=== PATIENT | female | born 1970 | race Hispanic/Latino ===

== ENCOUNTER 2018-08-26 21:17 | Emergency (ER) | payer BC ==
[2018-08-26] MEDS ORDERED: ACETAMINOPHEN 500 MG TAB ONE (22:28)
[2018-08-26 22:55] LABS: Urine Blood 1+ (NEG); Urine Glucose NEGATIVE (NEG); Urine Protein 1+ (NEG)
[2018-08-26] MEDS ORDERED: NA CHLORIDE 0.9% 1,000 ML ONE (23:10)
[2018-08-26 23:17] LABS: Urine Bacteria LOADED /HPF (<20); Urine Culture Reflex Order REFLEXED
[2018-08-26 23:20] LABS: Absolute Lymphocytes (CBC) 1.4 K/uL (0.7-4.9); Absolute Monocytes 0.9 K/uL (0.1-1.3); Absolute Neutrophil 8.4 K/uL (1.8-8.0); Basophils % 0.3 % (0-1.3); Eosinophils % 0.6 % (0-4.4); Hematocrit 39.8 % (36.0-45.0); Lymphocytes % 13.3 % (15.3-44.8); MPV 7.8 fL (7.6-11.3); Monocytes % 8.6 % (3.3-12.3); RBC Red Blood Cell Count 4.67 M/uL (3.86-4.86)
[2018-08-26] MEDS ORDERED: CEFTRIAXONE/SWI 1gm 1 GM/10 ML SYR ONE (23:24)
[2018-08-26 23:36] LABS: Albumin 3.2 g/dL (3.4-5.0); Bilirubin Direct 0.2 mg/dL (0-0.2); Bilirubin Total 0.6 mg/dL (0.2-1.0); Potassium 3.6 mmol/L (3.5-5.1); Protein, Total 7.3 g/dL (6.4-8.2)
--- NOTE | 2018-08-26 23:50 | EDPHYS ---
Physician Documentation [facility] Name: Becky Johnson Age: 48 yrs Sex: Female : 1970 Arrival Date: 08/26/2018 Time: 21:23 Bed 25 Private MD: Juan Chowdary S ED Physician Sterling Quinones HPI: 08/26 23:00 This 48 yrs old Female presents to ER via Ambulatory with complaints of Low pm1 Back Pain, Fever. 23:00 The patient presents with pain that is acute. The symptoms are located in the right low pm1 back. The pain does not radiate. The problem was sustained from unknown cause. Onset: The symptoms/episode began/occurred 3 day(s) ago. Modifying factors: The patient symptoms are alleviated by nothing, the patient symptoms are aggravated by nothing. Associated signs and symptoms: Pertinent positives: fever, cough, Pertinent negatives: abdominal pain, dysuria, headache, nausea, numbness, tingling, vomiting, shortness of breath. Severity of symptoms: in the emergency department the symptoms are unchanged. The patient has not experienced similar symptoms in the past. The patient has not recently seen a physician. 23:00 Associated signs and symptoms: Pertinent positives: Urinary frequency with right flank pm1 pain. 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 - Social history:: Smoking status: Patient/guardian denies using tobacco. - Ebola Screening: : Patient negative for fever greater than or equal to 101.5 degrees Fahrenheit, and additional compatible Ebola Virus Disease symptoms Patient denies exposure to infectious person Patient denies travel to an Ebola-affected area in the 21 days before illness onset No symptoms or risks identified at this time. ROS: 23:00 Eyes: Negative for injury, pain, redness, and discharge, ENT: Negative for injury, pm1 pain, and discharge, Neck: Negative for injury, pain, and swelling, Cardiovascular: Negative for chest pain, palpitations, and edema. 23:00 Abdomen/GI: Negative for abdominal pain, nausea, vomiting, diarrhea, and constipation. 23:00 : Negative for injury, bleeding, discharge, and swelling, MS/Extremity: Negative for injury and deformity, Skin: Negative for injury, rash, and discoloration, Neuro: Negative for headache, weakness, numbness, tingling, and seizure. 23:00 Constitutional: Positive for body aches, fever, Negative for poor PO intake. 23:00 Respiratory: Positive for cough, Negative for shortness of breath, sputum production, wheezing. 23:00 Back: Positive for flank pain, on the right. 23:00 : Positive for urinary frequency. pm1 Exam: 23:00 Constitutional: This is a well developed, well nourished patient who is awake, alert, pm1 and in no acute distress. Head/Face: Normocephalic, atraumatic. Eyes: Pupils equal round and reactive to light, extra-ocular motions intact. Lids and lashes normal. Conjunctiva and sclera are non-icteric and not injected. Cornea within normal limits. Periorbital areas with no swelling, redness, or edema. ENT: Nares patent. No nasal discharge, no septal abnormalities noted. Tympanic membranes are normal and external auditory canals are clear. Oropharynx with no redness, swelling, or masses, exudates, or evidence of obstruction, uvula midline. Mucous membranes moist. Neck: Trachea midline, no thyromegaly or masses palpated, and no cervical lymphadenopathy. Supple, full range of motion without nuchal rigidity, or vertebral point tenderness. No Meningismus. Chest/axilla: Normal chest wall appearance and motion. Nontender with no deformity. No lesions are appreciated. Cardiovascular: Regular rate and rhythm with a normal S1 and S2. No gallops, murmurs, or rubs. Normal PMI, no JVD. No pulse deficits. Respiratory: Lungs have equal breath sounds bilaterally, clear to auscultation and percussion. No rales, rhonchi or wheezes noted. No increased work of breathing, no retractions or nasal flaring. Abdomen/GI: Soft, non-tender, with normal bowel sounds. No distension or tympany. No guarding or rebound. No evidence of tenderness throughout. 23:00 Skin: Warm, dry with normal turgor. Normal color with no rashes, no lesions, and no evidence of cellulitis. MS/ Extremity: Pulses equal, no cyanosis. Neurovascular intact. Full, normal range of motion. 23:00 Back: CVA tenderness, that is mild, is noted on the right. 23:00 Neuro: Orientation: is normal, Motor: is normal, moves all fours. Vital Signs: 21:28 BP 137 / 85; Pulse 122; Resp 20; Temp 100.2(TE); Pulse Ox 98% on R/A; Weight 81.65 kg; aj Height 5 ft. 1 in. (154.94 cm); 23:26 BP 114 / 74; Pulse 112; Resp 18; Pulse Ox 97% ; tl3 08/27 00:17 BP 110 / 69; Pulse 103; Resp 18; Pulse Ox 97% on R/A; tl3 08/26 21:28 Body Mass Index 34.01 (81.65 kg, 154.94 cm) aj MDM: 08/26 21:33 Patient medically screened. pm1 23:48 Data reviewed: vital signs. Data interpreted: Pulse oximetry: on room air is 97 %. pm1 Interpretation: normal. Counseling: I had a detailed discussion with the patient and/or guardian regarding: the historical points, exam findings, and any diagnostic results supporting the discharge/admit diagnosis, lab results, the need for outpatient follow up, to return to the emergency department if symptoms worsen or persist or if there are any questions or concerns that arise at home. 08/26 22:03 Order name: Flu; Complete Time: 22:38 pm1 08/26 22:46 Order name: Urine Dipstick--Ancillary (enter results); Complete Time: 23:07 ms 08/26 22:49 Order name: Test, Urine; Complete Time: 23:07 EDVA 08/26 22:54 Order name: Urine Microscopic Only; Complete Time: 23:19 pm1 08/26 22:54 Order name: Basic Metabolic Panel; Complete Time: 23:47 pm1 08/26 22:54 Order name: CBC with Diff; Complete Time: 23:31 pm1 08/26 22:54 Order name: Hepatic Function; Complete Time: 23:47 pm1 08/26 22:54 Order name: Lipase; Complete Time: 23:47 pm1 08/26 23:17 Order name: Urine Culture EDVA 08/26 22:03 Order name: Urine Dipstick-Ancillary (obtain specimen); Complete Time: 22:19 pm1 08/26 22:03 Order name: Urine Test (obtain specimen); Complete Time: 22:44 pm1 08/26 22:54 Order name: IV Saline Lock; Complete Time: 23:25 pm1 08/26 22:54 Order name: Labs collected and sent; Complete Time: 23:25 pm1 Administered Medications: 22:19 Drug: Tylenol 1000 mg Route: PO; rv 22:44 Follow up: Response: Temperature is decreased tl3 23:15 Drug: NS 0.9% 1000 ml Route: IV; Rate: 1000 ml; Site: left antecubital; rv 08/27 00:17 Follow up: IV Status: Completed infusion; IV Intake: 1000ml tl3 08/26 23:26 Drug: Rocephin - (cefTRIAXone) 1 grams Route: IVPB; Infused Over: 5 mins; Site: left tl3 antecubital; Delivery: Primary tubing; 23:26 Follow up: IV Status: Completed infusion; IV Intake: 20ml tl3 23:54 Drug: Cipro 500 mg Route: PO; tl3 08/27 00:14 Follow up: Response: Medication administered at discharge. tl3 Disposition: 00:28 Co-signature as Attending Physician, Sterling Quinones MD. pkl Disposition: 08/26/18 23:49 Discharged to Home. Impression: Urinary tract infection, site not specified. - Condition is Stable. - Discharge Instructions: Urinary Tract Infection, Adult. - Prescriptions for Cipro 500 mg Oral Tablet - take 1 tablet by ORAL route every 12 hours for 7 days; 14 tablet. - Medication Reconciliation Form, Thank You Letter, Antibiotic Education, Prescription Opioid Use form. - Follow up: Emergency Department; When: As needed; Reason: Worsening of condition. Follow up: Private Physician; When: 2 - 3 days; Reason: Recheck today's complaints, Continuance of care, Re-evaluation by your physician. - Problem is new. - Symptoms have improved. Signatures: Dispatcher [employer] Morena Roberts RN RN aj Lam, Pin, MD MD pkl Rojelio Stein, INVESTIGATIVE SHOPPER INVESTIGATIVE SHOPPER pm1 Estephania Dunn RN RN tl3 Cabrera Rondon RN RN rv Corrections: (The following items were deleted from the chart) 08/26 22:56 22:47 TEST, SERUM+SC.LAB.BRZ ordered. [facility] EDVA 23:45 22:54 Creatinine for Radiology+C.LAB.BRZ ordered. [facility] 08/27 00:18 08/26 23:49 08/26/2018 23:49 Discharged to Home. Impression: Urinary tract infection, tl3 site not specified. Condition is Stable. Forms are Medication Reconciliation Form, Thank You Letter, Antibiotic Education, Prescription Opioid Use. Follow up: Emergency Department; When: As needed; Reason: Worsening of condition. Follow up: Private Physician; When: 2 - 3 days; Reason: Recheck today's complaints, Continuance of care, Re-evaluation by your physician. Problem is new. Symptoms have improved. pm1
--- NOTE | 2018-08-26 23:50 | ER ---
Nurse's Notes [facility] Name: Becky Johnson Age: 48 yrs Sex: Female : 1970 Arrival Date: 08/26/2018 Time: 21:23 Bed 25 Private MD: Juan Chowdary S Diagnosis: Urinary tract infection, site not specified Presentation: 08/26 21:27 Presenting complaint: Patient states: Cough, nasal congestion, fever for 3 days. aj Transition of care: patient was not received from another setting of care. Onset of symptoms was August 23, 2018. Risk Assessment: Do you want to hurt yourself or someone else? Patient reports no desire to harm self or others. Initial Sepsis Screen: Does the patient meet any 2 criteria? No. Patient's initial sepsis screen is negative. Does the patient have a suspected source of infection? No. Patient's initial sepsis screen is negative. Care prior to arrival: Medication(s) given: Motrin, 400 mg. 21:27 Method Of Arrival: Ambulatory aj 21:27 Acuity: IFEOMA 3 aj Triage Assessment: 21:28 General: Appears in no apparent distress. comfortable, Behavior is calm, cooperative, aj appropriate for age. Pain: Complains of pain in back. EENT: Reports nasal congestion nasal discharge. Neuro: Level of Consciousness is awake, alert, obeys commands, Oriented to person, place, time, situation, Appropriate for age. Respiratory: Airway is patent Respiratory effort is even, unlabored, Respiratory pattern is regular, symmetrical. Respiratory: Reports cough that is. Derm: Skin is intact, is healthy with good turgor, Skin is pink, warm \T\ dry. normal. 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 - Social history:: Smoking status: Patient/guardian denies using tobacco. - Ebola Screening: : Patient negative for fever greater than or equal to 101.5 degrees Fahrenheit, and additional compatible Ebola Virus Disease symptoms Patient denies exposure to infectious person Patient denies travel to an Ebola-affected area in the 21 days before illness onset No symptoms or risks identified at this time. Screenin:20 Abuse screen: Denies threats or abuse. Denies injuries from another. Nutritional rv screening: No deficits noted. Tuberculosis screening: No symptoms or risk factors identified. Fall Risk None identified. Assessment: 22:20 General: Appears in no apparent distress. uncomfortable, Behavior is calm, cooperative. rv Pain: Denies pain. Neuro: Level of Consciousness is awake, alert, obeys commands, Oriented to person, place, time, situation. Cardiovascular: Capillary refill < 3 seconds. Respiratory: Airway is patent. GI: No signs and/or symptoms were reported involving the gastrointestinal system. : No signs and/or symptoms were reported regarding the genitourinary system. EENT: No signs and/or symptoms were reported regarding the EENT system. Derm: Skin is intact. Musculoskeletal: No signs and/or symptoms reported regarding the musculoskeletal system. 23:26 Reassessment: No changes from previously documented assessment. Patient and/or family tl3 updated on plan of care and expected duration. Pain level reassessed. Patient is alert, oriented x 3, equal unlabored respirations, skin warm/dry/pink. 08/27 00:17 Reassessment: Patient appears in no apparent distress at this time. No changes from tl3 previously documented assessment. Patient and/or family updated on plan of care and expected duration. Pain level reassessed. Patient is alert, oriented x 3, equal unlabored respirations, skin warm/dry/pink. Vital Signs: 08/26 21:28 BP 137 / 85; Pulse 122; Resp 20; Temp 100.2(TE); Pulse Ox 98% on R/A; Weight 81.65 kg; aj Height 5 ft. 1 in. (154.94 cm); 23:26 BP 114 / 74; Pulse 112; Resp 18; Pulse Ox 97% ; tl3 08/27 00:17 BP 110 / 69; Pulse 103; Resp 18; Pulse Ox 97% on R/A; tl3 08/26 21:28 Body Mass Index 34.01 (81.65 kg, 154.94 cm) aj ED Course: 08/26 21:23 Patient arrived in ED. es 21:23 Juan Chowdary MD is Private Physician. es 21:28 Triage completed. aj 21:28 Arm band placed on left wrist. Patient placed in an exam room. aj 21:32 Rojelio Stein, METAL CANS SUPERVISOR is PHCP. pm1 21:32 Sterling Quinones MD is Attending Physician. pm1 22:19 Flu Sent. rv 22:20 Patient has correct armband on for positive identification. Bed in low position. Call rv light in reach. Side rails up X 1. Adult w/ patient. Pulse ox on. NIBP on. 23:00 Inserted saline lock: 20 gauge in left antecubital area, using aseptic technique. Blood rv collected. 23:00 Initial lab(s) drawn, by ut, sent to lab. rv 23:24 Estephania Dunn, RN is Primary Nurse. tl3 23:26 No provider procedures requiring assistance completed. tl3 08/27 00:17 IV discontinued, intact, bleeding controlled, No redness/swelling at site. Pressure tl3 dressing applied. Administered Medications: 08/26 22:19 Drug: Tylenol 1000 mg Route: PO; rv 22:44 Follow up: Response: Temperature is decreased tl3 23:15 Drug: NS 0.9% 1000 ml Route: IV; Rate: 1000 ml; Site: left antecubital; rv 08/27 00:17 Follow up: IV Status: Completed infusion; IV Intake: 1000ml tl3 08/26 23:26 Drug: Rocephin - (cefTRIAXone) 1 grams Route: IVPB; Infused Over: 5 mins; Site: left tl3 antecubital; Delivery: Primary tubing; 23:26 Follow up: IV Status: Completed infusion; IV Intake: 20ml tl3 23:54 Drug: Cipro 500 mg Route: PO; tl3 08/27 00:14 Follow up: Response: Medication administered at discharge. tl3 Intake: 08/26 23:26 IV: 20ml; Total: 20ml. tl3 08/27 00:17 IV: 1000ml; Total: 1020ml. tl3 Outcome: 08/26 23:49 Discharge ordered by . pm1 08/27 00:17 Discharged to home ambulatory. tl3 Condition: good Discharge instructions given to patient, family, Instructed on discharge instructions, follow up and referral plans. medication usage, Demonstrated understanding of instructions, follow-up care, medications, Prescriptions given X 1. 00:18 Patient left the ED. tl3 Addendum: 08/30/2018 08:05 Addendum: Culture Results: Positive urine culture. No further action required. Bacteria s s sensitive to prescribed antibiotic. Signatures: Morena Young, RN RN Kelsey Mancuso Shelby RN RN ss Rojelio Stein, METAL CANS SUPERVISOR METAL CANS SUPERVISOR pm1 Estephania Dunn, RN RN tl3 Cabrera Rondon RN RN rv
[2018-08-27] MEDS ORDERED: CIPROFLOXACIN HCL 500 MG TAB ONE (00:05)
[2018-08-27 02:06] VITALS: TEMP 100.2
[2018-08-27 02:08] VITALS: O2SAT 97
[2018-08-27 02:09] VITALS: BP 110/69
== END 2018-08-27 00:18 | disposition home or self-care (01) ==
LOC: ER 21:17
DX: N39.0 Urinary tract infection, site not specified (principal)
CPT/HCPCS: 36415; 80048; 80076; 81003; 81015; 81025; 83690; 85025; 87077; 87086; 87088; 87186; 87804; 96361; 96374; 99284; J0696; J7030

== ENCOUNTER 2019-12-14 18:54 | Emergency (ER) | payer BC ==
--- OUTSIDE RECORDS SUMMARY | 2019-12-14 18:57 | XMS REPORT | Summary of Care ---
:1970 Author Organization [facility] Address [address] [place] [address] Care Team Providers Name Role Phone Juan Chowdary MD Primary Care Provider Reason for Visit Reason Comments URINARY TRACT INFECTION Encounter Details Date Type Department Care Team Description 05/13/2019 Office Visit [facility] Family Meme Dumont, UTI symptoms (Primary Dx); Medicine - [facility] Acute cystitis with hematuria [facility] [place] [address] [facility] [place] [phone] Allergies No Known Allergiesdocumented as of this encounter (statuses as of 05/13/2019) Medications Medication Sig Dispensed Refills Start Date End Date Status azelastine 137 mcg Use 1 Hanson in 30 mL 0 01/31/2018 Active (0.1 %) nasal each nostril 2 sprayIndications: (two) times Sore throat daily. Use in each nostril as directed mupirocin 2 % Apply to area(s) 22 g 0 08/29/2018 Active ointmentIndications: 3 (three) times Skin tag daily. Nitrofurantoin&Nit. Take 1 capsule by 14 capsule 0 05/13/2019 05/20/2019 Active Macrocryst mouth 2 (two) (MACROBID) 100 mg times daily for 7 capsuleIndications: days. Acute cystitis with hematuria documented as of this encounter (statuses as of 05/13/2019) Active Problems Problem Noted Date Acute frontal sinusitis, recurrence not specified 10/04 Allergic rhinitis 10/30/2016 documented as of this encounter (statuses as of 05/13/2019) Resolved Problems Problem Noted Date Resolved Date Myalgia 10/30/2016 10/30/2016 Exposure to the flu 10/30/2016 10/30/2016 documented as of this encounter (statuses as of 05/13/2019) Social History Tobacco Use Types Packs/Day Years Used Date Never Smoker Smokeless Tobacco: Never Used Alcohol Use Drinks/Week oz/Week Comments No once monthly Sex Assigned at Date Recorded Not on file Job Start Date Occupation Industry Not on file Not on file Not on file Travel History Travel Start Travel End No recent travel history available. documented as of this encounter Last Filed Vital Signs Vital Sign Reading Time Taken Comments Blood Pressure 133/90 05/13/2019 1:36 PM CDT Pulse 96 05/13/2019 1:36 PM CDT Temperature 37.1 C (98.7 F) 05/13/2019 1:36 PM CDT Respiratory Rate - - Oxygen Saturation - - Inhaled Oxygen Concentration - - Weight 78.9 kg (174 lb) 05/13/2019 1:36 PM CDT Height 154.9 cm (5' 1") 05/13/2019 1:36 PM CDT Body Mass Index 32.88 05/13/2019 1:36 PM CDT documented in this encounter Patient Instructions Patient InstructionsMeme Dumont PA - 05/13/2019 3:00 PM CDT Urinary Tract Infections in Women Urinary tract infections (UTIs) are most often caused bybacteria. These bacteria enter the urinarytract. The bacteria may come from outside the body. Or they may travel from the skin outside therectum or vagina into the urethra. Female anatomy makes it easy for bacteria from the bowelto enter awomans urinary tract, which is the most common source of UTI. This means women develop UTIs more often than men. Pain in or around the urinary tract is a common UTI symptom. But the only way to knowfor sure if you have a UTI for the healthcare provider to test your urine. The two tests that may bedone are the urinalysis and urine culture. Types of UTIs Cystitis. A bladder infection (cystitis) is the most common UTI in women. You may have urgent or frequent urination. You may also havepain, burning when you urinate, and bloody urine. Urethritis. This is an inflamed urethra, which is the tube that carries urine from the bladder tooutside the body. You may have lower stomach or back pain. You may also have urgent or frequent urination. Pyelonephritis. This is a kidney infection. If not treated, it can be serious and damage your kidneys. In severe cases, you may need to stay in thehospital. You may have a fever and lower back pain. Medicines to treat a UTI Most UTIs are treated with antibiotics. These kill the bacteria. The length of time you need to takethem depends on the type of infection. It may be as short as 3 days. If you have repeated UTIs, you may need a low-dose antibioticfor several months. Take antibiotics exactly as directed. Dont stop taking them until all of the medicine is gone. If you stop taking the antibiotic too soon, the infection may not go away. You may also develop a resistance to the antibiotic. This can make it much harder to treat. Lifestyle changes to treat and prevent UTIs The lifestyle changes below will help get rid of your UTI. They may also help prevent future UTIs. Drink plenty of fluids. This includes water, juice, or other caffeine-free drinks. Fluids help flush bacteria out of your body. Empty your bladder. Always empty your bladder when you feel the urge to urinate. And always urinate before going to sleep. Urine that stays in your bladder can lead to infection. Try to urinate before and after sex as well. Practice good personal hygiene. Wipe yourself from front to back after using the toilet. This helps keep bacteria from getting into the urethra. Use condoms during sex. These help prevent UTIs caused by sexually transmitted bacteria. Also don't use spermicides during sex. These can increase the risk for UTIs. Choose other forms of control instead. For women who tend to get UTIs after sex, a low-dose of a preventive antibiotic may be used. Be sure to discuss this option with your healthcare provider. Follow up with your healthcare provider as directed. He or she may test to make sure the infection has cleared. If needed, more treatment may be started. Date Last Reviewed: 09/02/201619994099-8447 [employer]. [address] [place] [address], OMAYRA Doherty [address]. All rights reserved. This information is not intended as a substitute for professional medical care. Always follow your healthcare professional's instructions. Nitrofurantoin tablets or capsules Brand Names: Macrobid, Macrodantin What is this medicine? NITROFURANTOIN (vandana LARSON toyn) is an antibiotic. It is used to treat urinary tract infections. How should I use this medicine? Take this medicine by mouth with a glass of water. Follow the directions on the prescription label. Take this medicine with food or milk. Take your doses at regular intervals. Do not take your medicinemore often than directed. Do not stop taking except on your doctor's advice. Talk to your bryologist regarding the use of this medicine in children. While this drug may be prescribed for selected conditions, precautions do apply. What side effects may I notice from receiving this medicine? Side effects that you should report to your doctor or health home care assistant as soon as possible: allergic reactions like skin rash or hives, swelling of the face, lips, or tongue chest pain cough difficulty breathing dizziness, drowsiness fever or infection joint aches or pains pale or blue-tinted skin redness, blistering, peeling or loosening of the skin, including inside the mouth tingling, burning, pain, or numbness in hands or feet unusual bleeding or bruising unusually weak or tired yellowing of eyes or skin Side effects that usually do not require medical attention (report to your doctor or health home care assistant if they continue or are bothersome): dark urine diarrhea headache loss of appetite nausea or vomiting temporary hair loss What may interact with this medicine? antacids containing magnesium trisilicate probenecid quinolone antibiotics like ciprofloxacin, lomefloxacin, norfloxacin and ofloxacin sulfinpyrazone What if I miss a dose? If you miss a dose, take it as soon as you can. If it is almost time for your next dose, take only that dose. Do not take double or extra doses. Where should I keep my medicine? Keep out of the reach of children. Store at room temperature between 15 and 30 degrees C (59 and 86 degrees F). Protect from light. Throw away any unused medicine after the expiration date. What should I tell my health care provider before I take this medicine? They need to know if you have any of these conditions: anemia diabetes nngeull-[id number] dehydrogenase deficiency kidney disease liver disease lung disease other chronic illness an unusual or allergic reaction to nitrofurantoin, other antibiotics, other medicines, foods, dyes or preservatives or trying to get breast-feeding What should I watch for while using this medicine? Tell your doctor or health home care assistant if your symptoms do not improve or if you get new symptoms. Drink several glasses of water a day. If you are taking this medicine for a long time, visit your doctor for regular checks on your progress. If you are diabetic, you may get a false positive result for sugar in your urine with certain brandsof urine tests. Check with your doctor. NOTE:This sheet is a summary. It may not cover all possible information. If you have questions aboutthis medicine, talk to your doctor, pharmacist, or health care provider. Copyright 2018 [employer] documented in this encounter Progress Notes Meme Dumont PA - 05/13/2019 3:00 PM CDT Cc: Chief Complaint Patient presents with URINARY TRACT INFECTION Brandon Johnson is a 49 year old female. URINARY TRACT INFECTION Patient presents to clinic today with complaints of dysuria, frequency and urgency. Patient denies bladder incontinence, flank pain, hematuria, hesitancy, inability to urinate, nocturia, stress incontinence or urge incontinence. This is a new problem. The current episode started in the past 7 days (x 3 days). Her pain is at a severity of 3/10. The pain is mild. Patient describes pain as burning. There has been no fever. She describes her urine color as clear. Obstructive symptoms do not include dribbling, incomplete emptying, an intermittent stream, a slower stream, straining or a weak stream. Associated symptoms include abdominal pain (suprapubic area feels uncomfortable). Pertinent negatives include no chills, discharge, facial swelling, fever, flank pain, genital pain, nausea, possible , sweats or vomiting. She has tried increased fluids for the symptoms.She is sexually active. There is no history of kidney stones, pyelonephritis, single kidney or STDs. Allergies Brandon has No Known Allergies. Medications Outpatient Medications Prior to Visit Medication Sig Dispense Refill mupirocin 2 % ointment Apply to area(s) 3 (three) times daily. 22 g 0 azelastine 137 mcg (0.1 %) nasal spray Use 1 Hanson in each nostril 2 (two) times daily. Use in each nostril as directed 30 mL 0 No facility-administered medications prior to visit. Histories Past Medical History: Diagnosis Date Allergic rhinitis, unspecified allergic rhinitis trigger, unspecified rhinitis seasonality 10/30/2016 Past Surgical History: Procedure Laterality Date HYSTERECTOMY partial TONSILLECTOMY 2015 TUBAL LIGATION Social History Socioeconomic History Marital status: Spouse name: Not on file Number of children: Not on file Years of education: Not on file Highest education level: Not on file Occupational History Not on file Social Needs Financial resource strain: Not on file Food insecurity: Worry: Not on file Inability: Not on file Transportation needs: Medical: Not on file Non-medical: Not on file Tobacco Use Smoking status: Never Smoker Smokeless tobacco: Never Used Substance and Sexual Activity Alcohol use: No Comment: once monthly Drug use: No Sexual activity: Not on file Lifestyle Physical activity: Days per week: Not on file Minutes per session: Not on file Stress: Not on file Relationships Social connections: Talks on phone: Not on file Gets together: Not on file Attends yazidi service: Not on file Active member of club or organization: Not on file Attends meetings of clubs or organizations: Not on file Relationship status: Not on file Intimate partner violence: Fear of current or ex partner: Not on file Emotionally abused: Not on file Physically abused: Not on file Forced sexual activity: Not on file Other Topics Concern Not on file Social History Narrative Works at [employer]: [place] Family History Problem Relation Age of Onset Hypertension Mother Hypertension Father Review of Systems Constitutional: Negative for activity change, appetite change, chills, diaphoresis, fatigue and fever. HENT: Negative for facial swelling. Respiratory: Negative for cough, chest tightness, shortness of breath and wheezing. Cardiovascular: Negative for chest pain, palpitations and leg swelling. Gastrointestinal: Positive for abdominal pain (suprapubic area feels uncomfortable). Negative for constipation, diarrhea, nausea and vomiting. Genitourinary: Positive for dysuria, urgency and frequency. Negative for bladder incontinence, hematuria, flank pain, decreased urine volume, vaginal bleeding, vaginal discharge, enuresis, difficulty urinating, genital sores, vaginal pain, menstrual problem, pelvic pain, dyspareunia, incomplete emptying and nocturia. Musculoskeletal: Negative for back pain. Neurological: Negative for dizziness, syncope, light-headedness and headaches. Vital Signs BP 133/90 (BP Location: Left arm, Patient Position: Sitting, BP CUFF SIZE: Adult Large) | Pulse 96| Temp 37.1 C (98.7 F) (Tympanic) | Ht 5' 1" (1.549 m) | Wt 174 lb (78.9 kg) | BMI 32.88 kg/m Physical Exam Constitutional: She is oriented to person, place, and time. She appears well- developed and well-nourished. No distress. HENT: Head: Normocephalic and atraumatic. Cardiovascular: Normal rate, regular rhythm and normal heart sounds. Pulmonary/Chest: Effort normal and breath sounds normal. Abdominal: Soft. Bowel sounds are normal. She exhibits no distension. There is tenderness (very mild) in the suprapubic area. There is no rigidity, no rebound, no guarding and no CVA tenderness. Musculoskeletal: Normal range of motion. Neurological: She is alert and oriented to person, place, and time. Skin: Skin is warm and dry. She is not diaphoretic. Psychiatric: She has a normal mood and affect. Her behavior is normal. Nursing note and vitals reviewed. Assessment/Plan UTI symptoms (primary encounter diagnosis) Plan: POCT URINALYSIS W SPECIFIC GRAVITY, URINE CULTURE Results for BRANDON JOHNSON ( ) as of 05/13/2019 14:07 Ref. Range 05/13/2019 00:00 POCT PH U Latest Ref Range: 5 - 8 mg/dl 7 POCT U SP GRAV Latest Ref Range: 1.005 - 1.025 mg/dl 1.015 POCT U GLU Latest Ref Range: Negative - Negative negaive POCT U BLD Latest Ref Range: Negative - Negative 50 POCT U KETONE Latest Ref Range: Negative - Negative small POCT U PROT Latest Ref Range: Negative - Negative trace POCT U UROBILI Latest Ref Range: 0.2 - 1 mg/dl negative POCT U BILI Latest Ref Range: Negative - Negative negative POCT U NIT Latest Ref Range: Negative - Negative negative POCT U LEUK EST Latest Ref Range: Negative - Negative trace POCT U COLOR Unknown pale yellow POCT U APPEAR Unknown hazy Acute cystitis with hematuria Plan: URINE CULTURE, Nitrofurantoin&Nit. Macrocryst (MACROBID) 100 mg capsule Well appearing, afebrile, HR < 100. No flank pain and no CVAT. No f/c, n/v. Start on macrobid for UTI, take full course as directed for UTI. Will get urinary culture. Increase water intake Wipe front to back for females Cranberry juice Frequent voiding Avoid sexual activity until UTI resolves In the future, void before and after sexual activity Azo- maximum 2 days as needed for burning ER--> worsening condition; nausea, vomiting, dizziness, passing out, fever, chills, severe pain, flank pain Pt ed/precautions given in detail regarding conditions/medicaitons. Er precautions given. Pt reportsunderstanding and agrees. rtc if s/s worsen or do not improve; Plan of care, desired health behaviors, goals, Ddx, & any prescribed or OTC medications discussed with patient. Education resources & self management tools provided and reviewed with AVS. Patient/guardian/family verbalized understanding & agrees to plan of care. Barriers to care: NONE Ability to manage care: Good This visit did not involve counseling and coordination that comprised more than 50% of the visit time. documented in this encounter Plan of Treatment Name Type Priority Associated Diagnoses Order S chedule URINE CULTURE LAB Routine UTI symptoms Ordered: 05/13/2019 Acute cystitis with hematuri a Health Maintenance Due Date Last Done Comments DTaP,Tdap,and Td Vaccines (1 - 1990 Tdap) MAMMOGRAM 03/27/201703/27/2016 INFLUENZA VACCINE (#1) 2019 PNEUMOCOCCAL 0-64 YEARS COMBINED Aged Out No longer eligible based on SERIES patient's age to complete this topic documented as of this encounter Procedures Procedure Name Priority Date/Time Associated Diagnosis Comme nts POCT URINALYSIS Routine 05/13/2019 UTI symptoms Results for this procedure are in the resu lts section. documented in this encounter Results POCT URINALYSIS W SPECIFIC GRAVITY (05/13/2019) Pathologist Sig nature POCT U SP GRAV 1.015 1.005 - 1.025 mg/dl POCT PH U 7 5 - 8 mg/dl POCT U LEUK EST trace Negative - Negative POCT U NIT negative Negative - Negative POCT U PROT trace Negative - Negative POCT U GLU negaive Negative - Negative POCT U KETONE small Negative - Negative POCT U UROBILI negative 0.2 - 1 mg/dl POCT U BILI negative Negative - Negative POCT U BLD 50 Negative - Negative POCT U COLOR pale yellow POCT U APPEAR hazy Specimen Urine - URINE, CLEAN CATCH documented in this encounter Visit Diagnoses Diagnosis UTI symptoms - Primary Acute cystitis with hematuria Acute cystitis documented in this encounter Insurance Payer Benefit Plan Subscriber ID Effective Dates Phone Address Type / Group BCBS OF [facility] [id number] 2013-Jamil [phone] [address] PPO/POS [place] - OUT OF t 7 [id number] [place] [address] documented as of this encounter
--- OUTSIDE RECORDS SUMMARY | 2019-12-14 18:57 | XMS REPORT | Summary of Care ---
:1970 Author Organization [facility] Address [address] [place] [address] Care Team Providers Name Role Phone Juan Chowdary MD Primary Care Provider Reason for Visit Reason Comments Follow-up Encounter Details Date Type Department Care Team Description 10/05/2019 Telephone [facility] Urgent Mene Theresa iyer FNP Follow-up Care [address] [place] [address] [address] [place] [address] [place] [address] [phone] Allergies No Known Allergiesdocumented as of this encounter (statuses as of 10/06/2019) Medications Medication Sig Dispensed Refills Start Date End Date Status azelastine 137 mcg Use 1 Sparks in 30 mL 0 01/31/2018 Active (0.1 %) nasal each nostril 2 sprayIndications: Sore (two) times daily. throat Use in each nostril as directed mupirocin 2 % Apply to area(s) 22 g 0 08/29/2018 Active ointmentIndications: 3 (three) times Skin tag daily. fluticasone propionate Use 1 Sparks in 1 Bottle 0 06/29/2019 Active (FLONASE ALLERGY each nostril RELIEF) 50 daily. mcg/actuation nasal sprayIndications: Allergic sinusitis documented as of this encounter (statuses as of 10/06/2019) Active Problems Problem Noted Date Acute frontal sinusitis, recurrence not specified 10/04 Allergic rhinitis 10/30/2016 documented as of this encounter (statuses as of 10/06/2019) Resolved Problems Problem Noted Date Resolved Date Myalgia 10/30/2016 10/30/2016 Exposure to the flu 10/30/2016 10/30/2016 documented as of this encounter (statuses as of 10/06/2019) Social History Tobacco Use Types Packs/Day Years [...] of this encounter Last Filed Vital Signs Not on filedocumented in this encounter Plan of Treatment Health Maintenance Due Date Last Done Comments DTaP,Tdap,and Td Vaccines ( - 1982 Tdap) Breast Cancer Screening 03/27/2017 03/27/2016 (MAMMOGRAM) INFLUENZA VACCINE (#1) 2019 PNEUMOCOCCAL 0-64 YEARS COMBINED Aged Out No longer eligible based on SERIES patient's age to complete this topic documented as of this encounter Results Not on filedocumented in this encounter Insurance Payer Benefit Plan Subscriber ID Effective Dates Phone Address Type / Group BCBS OF [facility] [id number] 2013-Jamil [phone] [address] PPO/POS [place] - OUT OF t 7 [id number] [place] [address] documented as of this encounter
--- OUTSIDE RECORDS SUMMARY | 2019-12-14 18:57 | XMS REPORT ---
:1970 Author Organization [facility] t Address [address] [place] [address] [address] [place] [address] Care Team Providers Name Role Phone Unavailable Unavailable Unavailable Problems This patient has no known problems. Allergies, Adverse Reactions, Alerts This patient has no known allergies or adverse reactions. Medications This patient has no known medications.
--- OUTSIDE RECORDS SUMMARY | 2019-12-14 18:57 | XMS REPORT | Summary of Care ---
:1970 Author Organization [facility] Address [address] [place] [address] Care Team Providers Name Role Phone Juan Chowdary MD Primary Care Provider Reason for Visit Reason Comments URINARY TRACT INFECTION Encounter Details Date Type Department Care Team Description 05/13/[address] [facility] Family Meme Dumont, UTI symptoms (Primary Dx); Medicine - [facility] Acute cystitis with hematuria [facility] [place] [address] [facility] [place] [phone] Allergies No Known Allergiesdocumented as of this encounter (statuses as of 05/13/2019) Medications Medication Sig Dispensed Refills Start Date End Date Status azelastine 137 mcg Use 1 Big Indian in 30 mL 0 01/31/2018 Active (0.1 [...] treatment may be started. Date Last Reviewed: 09/02/201619994674-5838 The [employer]. [address] [place] [address], O[place] Doherty [address]. All rights reserved. This information is not [...] on your doctor's advice. Talk to your car customizer regarding the use of this medicine in children. While this drug may be prescribed for selected conditions, precautions do apply. What side effects may I notice from receiving this medicine? Side effects that you should report to your doctor or health career guidance counselor as soon as possible: allergic reactions like [...] attention (report to your doctor or health career guidance counselor if they continue or are bothersome): dark [...] have any of these conditions: anemia diabetes mvdywau-5-ssvhjwbsj dehydrogenase deficiency kidney disease liver disease lung disease other chronic illness an unusual or allergic reaction to nitrofurantoin, other antibiotics, other medicines, foods, dyes or preservatives or trying to get breast-feeding What should I watch for while using this medicine? Tell your doctor or health career guidance counselor if your symptoms do not improve or [...] pharmacist, or health care provider. Copyright 2018 [employer] documented in this encounter Progress Notes Meme [...] mcg (0.1 %) nasal spray Use 1 Big Indian in each nostril 2 (two) times daily. [...] file Gets together: Not on file Attends jew service: Not on file Active member of [...] on file Social History Narrative Works at [employer]: [employer] Family History Problem Relation Age of Onset [...] Phone Address Type / Group BCBS OF [facility] [id number] 2013-Jamil [phone] [address] PPO/POS [place] - OUT OF t 7 [id number] [place] [address] documented as of this encounter
--- OUTSIDE RECORDS SUMMARY | 2019-12-14 18:57 | XMS REPORT | Summary of Care ---
:1970 Author Organization [facility] - Health Address [address] [place] [address] Care Team Providers Name Role Phone Juan Chowdary MD Primary Care Provider Encounter Details Date Type Department Care Team Description 05/13/2019 Orders Only [facility] Doctor Unassigned, No [address] [facility] [place] [address] [address] [id number] Allergies No Known Allergiesdocumented as of this encounter (statuses as of 05/13/2019) Medications Medication Sig Dispensed Refills Start Date End Date Status azelastine 137 mcg Use 1 [place] in each 30 mL 0 01/31/2018 Active (0.1 %) nasal nostril 2 (two) sprayIndications: times daily. Use in Sore throat each nostril as directed mupirocin 2 % Apply to area(s) 3 22 g 0 08/29/2018 Active ointmentIndications: (three) times Skin tag daily. documented as of this encounter (statuses as [...] filedocumented in this encounter Plan of Treatment Date Type Specialty Care Team Description 05/13/2019 Office Visit Family Medicine Meme Dumont PA Arrived [address] [address] [phone] Health Maintenance Due Date Last Done Comments DTaP,Tdap,and Td Vaccines ( - 1990 Tdap) MAMMOGRAM 03/27/2017 03/27/2016 INFLUENZA VACCINE (#1) 2019 PNEUMOCOCCAL 0-64 YEARS COMBINED Aged Out No longer eligible based on SERIES patient's age to complete this topic documented as of this encounter Procedures Procedure Name Priority Date/Time Associated Diagnosis Comme nts NO SHOW OR MISSED Routine 05/13/2019 1:16 PM APPOINTMENT POLICY CDT ACKNOWLEDGEMENT documented in this encounter Results Not on filedocumented in this encounter Insurance Payer Benefit Plan Subscriber ID Effective Dates Phone Address Type / Group [employer] [place] [employer] [place] [id number] 2013-Jamil [phone] [address] PPO/POS [place] - OUT OF t [id number] [place] [address] documented as of this encounter
--- OUTSIDE RECORDS SUMMARY | 2019-12-14 18:57 | XMS REPORT | Summary of Care ---
:1970 Author Organization [facility] Address [address] [place] [address] Care Team Providers Name Role Phone Juan Chowdary MD Primary Care Provider Reason for Visit Reason Comments Orders Encounter Details Date Type Department Care Team Description 05/19/2019 Telephone [facility] Family Medicine [place] russo, OMAYRA Haley Orders - [address] [place] [address] [place] [address] [phone] Allergies No Known Allergiesdocumented as of this encounter (statuses as of 05/19/2019) Medications Medication Sig Dispensed Refills Start Date End Date Status azelastine 137 mcg Use 1 [place] in 30 mL 0 01/31/2018 Active (0.1 [...] 7 capsuleIndications: days. Acute cystitis with hematuria fluconazole Take 1 tablet by 1 tablet 0 05/19/2019 05/19/2019 Active (DIFLUCAN) 150 mg mouth once now tabletIndications: for 1 dose. Antibiotic-induced yeast infection documented as of this encounter (statuses as of 05/19/2019) Active Problems Problem Noted Date Acute frontal sinusitis, recurrence not specified 10/04 Allergic rhinitis 10/30/2016 documented as of this encounter (statuses as of 05/19/2019) Resolved Problems Problem Noted Date Resolved Date Myalgia 10/30/2016 10/30/2016 Exposure to the flu 10/30/2016 10/30/2016 documented as of this encounter (statuses as of 05/19/2019) Social History Tobacco Use Types Packs/Day Years [...] Results Not on filedocumented in this encounter Visit Diagnoses Diagnosis Antibiotic-induced yeast infection - Elizabeth dunne documented in this encounter Insurance Payer Benefit Plan Subscriber ID Effective Dates Phone Address Type / Group [facility] [id number] 2013-Jamil [phone] [address] PPO/POS [place] - OUT OF 7 [id number] [place] [address] documented as of this encounter
--- OUTSIDE RECORDS SUMMARY | 2019-12-14 18:58 | XMS REPORT | Summary of Care ---
:1970 Author Organization [facility] Address [address] [place] [address] Care Team Providers Name Role Phone Juan Chowdary MD Primary Care Provider Reason for Visit Reason Comments Congestion 2 days Cough 2 days Sore Throat 2 days Chills 2 days Vaginal Problem redness- 3 days Encounter Details Date Type Department Care Team Description 09/30/2019 Urgent Care [facility] Unknown, Attending V raffi upper respiratory illness (Primary Dx); Urgent Care Theresa Cortez, TALENT BUYER [address] [place] [address] Chills; [address], [place] [address] [place] [address] Allergies No Known Allergiesdocumented as of this encounter (statuses as of 09/30/2019) Medications Medication Sig Dispensed Refills Start Date End Date Status azelastine 137 mcg Use 1 [place] in 30 mL 0 01/31/2018 Active (0.1 %) nasal each nostril 2 sprayIndications: Sore (two) times daily. throat Use in each nostril as directed mupirocin 2 % Apply to area(s) 22 g 0 08/29/2018 Active ointmentIndications: 3 (three) times Skin tag daily. fluticasone propionate Use 1 [place] in 1 Bottle 0 06/29/2019 Active (FLONASE ALLERGY each nostril RELIEF) 50 daily. mcg/actuation nasal sprayIndications: Allergic sinusitis documented as of this encounter (statuses as of 09/30/2019) Active Problems Problem Noted Date Acute frontal sinusitis, recurrence not specified 10/04 Allergic rhinitis 10/30/2016 documented as of this encounter (statuses as of 09/30/2019) Resolved Problems Problem Noted Date Resolved Date Myalgia 10/30/2016 10/30/2016 Exposure to the flu 10/30/2016 10/30/2016 documented as of this encounter (statuses as of 09/30/2019) Social History Tobacco Use Types Packs/Day Years [...] Sign Reading Time Taken Comments Blood Pressure 150/93 09/30/2019 7:14 PM 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 Pulse 110 09/30/2019 7:13 PM 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 Temperature 37 C (98.6 F) 09/30/2019 7:13 PM 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 Respiratory Rate 17 09/30/2019 7:13 PM 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 Oxygen Saturation 98% 09/30/2019 7:13 PM 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 Inhaled Oxygen Concentration - - Weight 81.8 kg (180 lb 5.8 oz) 09/30/2019 7:13 PM 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 Height 152.4 cm (5') 09/30/2019 7:13 PM 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 Body Mass Index 35.22 09/30/2019 7:13 PM 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 documented in this encounter Patient Instructions Patient InstructionsTheresa Cortez FNP - 09/30/2019 7:00 PM CST General home recommendations include: Rest Increase fluids -Hydration with clear liquids. Vitamin C Warm salt water gargles for sore throat. Breath humidified air (steam) Sipping warm drinks may help. Warm Compresses (if sinus pressure or pain). Hand Hygiene (with alcohol gels or hand washing) Advised to take Tylenol or Ibuprofen as per label recommendation as needed for pain or fever Honey 10mL (2 teaspoons) has been shown to relieve cough at bedtime. Dark Chocolate helps with cough (xanthenes) Avoidance of cigarette smoke, alcoholic drinks, diving into deep water and air travel is useful. Irrigate your nose with normal saline moisture spray 2 or 3 times a day. You may use a spray, squeeze bottle, or nasal pot. - Advised to follow up with PCP, Urgent Care, or go to the nearest Emergency Department sooner for any new, worsening, persistent, or concerning symptoms. Preventing Vaginitis Use mild, unscented soap when you bathe or shower to avoid irritating your vagina. Vaginitis is irritation or infection of the vagina or the outside opening of it (vulva).Vaginitis can be caused by bacteria, viruses, parasites, or yeast. Chemicals such as in perfumes or soaps or inspermicides can sometimes be a cause. Vaginitis can be caused by hormone changes in or with menopause.You can help prevent vaginitis. Follow the tips below. And see your healthcare providerif you have any symptoms. Hygiene Stay away from chemicals. Don't use vaginal sprays. Don't use scented toilet paper or tampons that are scented. Sprays and scents have chemicals that can irritate your vagina. Don't douche unless you are told to by your healthcare provider. Douching is rarely needed. And it upsets the normal balance in the vagina. Wash yourself well. Wash the outer vaginal area (vulva) every day with mild, unscented soap. Keepit as dry as possible. Wipe correctly. Make sure to wipe from front to back after a bowel movement. This helps keep fromspreading bacteria from your anus to your vagina. Change your tampon often. During your period, make sure to change your tampon as often as directed on the package. This allows the normal flow of vaginal discharge and blood. Lifestyle Limit your number of sexual partners. The more partners you have, the greater your risk of infection. Using condoms helps reduce your risk. Get enough sleep. Sleep helps keep your bodys immune system healthy. This helps you fight infection. Lose weight, if needed. Excess weight can reduce air circulation around your vagina. This can increase your risk of infection. Exercise regularly. Regular activity helps keep your body healthy. Take antibiotics only as directed.Antibiotics can change the normal chemical balance in the vagina. Clothing Dont sit in wet clothes. Yeast thrives when its warm and damp. Dont wear tight pants. And dont wear tights, leggings, or hose without a cotton crotch. These types of clothing trap warmth and moisture. Wear cotton underwear. Cotton lets air circulate around the vagina. Symptoms of vaginitis Irritation, swelling, or itching of the genital area Vaginal discharge Bad vaginal odor Pain or burning during urination Dinora last reviewed this educational content on 07/03/201919993381-3005 [employer]. [address] [place] [address], [place] [address]. All rights reserved. This information is not intended as a substitute for professional medical care. Always follow your healthcare professional's instructions. THREADING MACHINE OPERATOR documented in this encounter Progress Notes Theresa Cortez FNP - 09/30/2019 7:00 PM CST Cc: Chief Complaint Patient presents with Congestion 2 days Cough 2 days Sore Throat 2 days Chills 2 days Vaginal Problem redness- 3 days Becky Johnson is a 49 year old female that presents to the urgent care for upper respiratory symptoms that start yesterday (today is Saturday). She also c/o vaginal irritation since Saturday after swimming over the week with her grandchildren. Denies any discharge or bleeding. URI Presenting symptoms: congestion, cough and sore throat Presenting symptoms: no ear pain and no fever Severity: Moderate Onset quality: Sudden Duration: 2 days Timing: Constant Progression: Unchanged Chronicity: New Relieved by: Nothing Worsened by: Nothing Ineffective treatments: Mucinex and allergy medication. Associated symptoms: no arthralgias and no myalgias Allergies Becky has No Known Allergies. Medications Outpatient Medications Prior to Visit Medication Sig Dispense Refill fluticasone propionate (FLONASE ALLERGY RELIEF) 50 mcg/actuation nasal spray Use 1 [place] in eachnostril daily. 1 Bottle 0 mupirocin 2 % ointment Apply to area(s) 3 (three) times daily. 22 g 0 azelastine 137 mcg (0.1 %) nasal spray Use 1 [place] in each nostril 2 (two) times daily. [...] file Gets together: Not on file Attends orthodox service: Not on file Active member of [...] on file Social History Narrative Works at [employer] Family History Problem Relation Age of Onset Hypertension Mother Hypertension Father Review of Systems Constitutional: Positive for chills. Negative for fever. HENT: Positive for congestion and sore throat. Negative for ear discharge and ear pain. Respiratory: Positive for cough. Genitourinary: Positive for vaginal pain ("irritation"). Negative for dysuria, frequency, vaginal bleeding and vaginal discharge. Musculoskeletal: Negative for arthralgias and myalgias. Skin: Negative for rash. Psychiatric/Behavioral: Negative for agitation and confusion. Vital Signs BP (!) 150/93 | Pulse 110 | Temp 37 C (98.6 F) (Oral) | Resp 17 | Ht 5' (1.524 m) | Wt 180 lb 5.8 oz (81.8 kg) | SpO2 98% | BMI 35.22 kg/m Physical Exam Constitutional: She is oriented to person, place, and time. She appears well- developed and well-nourished. No distress. HENT: Head: Normocephalic and atraumatic. Right Ear: Tympanic membrane and ear canal normal. Left Ear: Tympanic membrane and ear canal normal. Nose: Mucosal edema present. Mouth/Throat: Uvula is midline, oropharynx is clear and moist and mucous membranes are normal. Eyes: Conjunctivae are normal. Cardiovascular: Normal rate, regular rhythm, normal heart sounds and intact distal pulses. Pulmonary/Chest: Effort normal and breath sounds normal. Genitourinary: There is no rash, lesion or injury on the right labia. There is no rash, lesion or injury on the left labia. There is erythema (mild) in the vagina. No vaginal discharge found. Genitourinary Comments: Tahmina Delgado, [employer] student present as strainer cleaner. Lymphadenopathy: Head (right side): No submandibular and no tonsillar adenopathy present. Head (left side): No submandibular and no tonsillar adenopathy present. She has no cervical adenopathy. Neurological: She is alert and oriented to person, place, and time. Gait normal. Skin: Skin is warm and dry. No rash noted. Psychiatric: She has a normal mood and affect. Her behavior is normal. Thought content normal. Nursing note and vitals reviewed. Recent Labs 09/30/191920 POCTFLUA negative POCTFLUB negative Recent Labs 09/30/191921 POCTCRSS negative Assessment/Plan 1. Viral upper respiratory illness - No focus suspicious for a bacterial process. Educated patient that viral illness usually last 7-10 days and resolve with symptomatic treatment. Based on onset of symptoms, exam findings, and negative strep and flu test this is likely a viral illness. - education provided to patient includes: Avoid OTC decongestant medications, as this can elevate blood pressure. Coricidin is safe to take OTC with blood pressure. Rest Increase fluids -Hydration with clear liquids. Vitamin C Warm salt water gargles for sore throat. Breath humidified air (steam) Sipping warm drinks may help. Warm Compresses (if sinus pressure or pain). Hand Hygiene (with alcohol gels or hand washing) Advised to take Tylenol or Ibuprofen as per label recommendation as needed for pain or fever Honey 10mL (2 teaspoons) has been shown to relieve cough at bedtime. Dark Chocolate helps with cough (xanthenes) Avoidance of cigarette smoke, alcoholic drinks, diving into deep water and air travel is useful. Irrigate your nose with normal saline moisture spray 2 or 3 times a day. You may use a spray, squeeze bottle, or nasal pot. - Advised to follow up with PCP, Urgent Care, or go to the nearest Emergency Department sooner for any new, worsening, persistent, or concerning symptoms. 2. Chills - POCT FLU A AND B (MOLECULAR) - POCT GRP A STREP (MOLECULAR) 3. Vaginal irritation - [facility] ONLY - VAGINAL PATHOGENS BY DNA PROBE - no evidence of vaginal yeast infection on exam, will wait for pending lab results prior to prescribing medication. - educated patient to avoid soaps and scents, wear cotton underwear and avoid irritating pads/panty-liners until symptoms resolve. Plan of care, desired health behaviors, goals, and medication discussed with patient. Education resources provided and reviewed with AVS. Patient/guardian/family verbalized understanding & agrees to plan of care. This visit did not involve counseling and coordination that comprised more than 50% of the visit time. Barriers to care: none. Ability to manage care: well. Advanced care planning (living will) information was given/offered to the patient to review for discussion at a future visit. If applicable, the [employer] database was accessed to review any controlled substance prescription claims data. The [employer] prescription claims data in [employer] was reviewed to assess patient compliance with the medication treatment plan. 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 POCT FLU A AND B Routine 09/30/2019 7:21 PM [place]ills Resu lts for this (MOLECULAR) 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 procedure are i n the results section. documented in this encounter Results POCT GRP A STREP (MOLECULAR) (09/30/2019 7:22 PM 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) Pathologist Sig nature POCT GP A STREP negative Negative - Negative Specimen Swab - THROAT POCT FLU A AND B (MOLECULAR) (09/30/2019 7:21 PM 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) Pathologist Sig nature POCT INFLUENZA A negative Negative - Negative POCT INFLUENZA B negative Negative - Negative Specimen Swab documented in this encounter Visit Diagnoses Diagnosis Viral upper respiratory illness - Primar y Acute upper respiratory infections of un specified site Chills Chills (without fever) Vaginal irritation Unspecified noninflammatory disorder of vagina documented in this encounter Insurance Payer Benefit Plan Subscriber ID Effective Dates Phone Address Type / Group [facility] [id number] 2013-Jamil [phone] [address] PPO/POS [place] - OUT OF t 7 [id number] [place] [address] documented as of this encounter
[2019-12-14 19:40] LABS: Basophils % 0.4 % (0-1.3); Hematocrit 41.6 % (36.0-45.0); Lymphocytes % 28.9 % (15.3-44.8); MPV 7.6 fL (7.6-11.3); RBC Red Blood Cell Count 4.91 M/uL (3.86-4.86)
[2019-12-14 19:41] LABS: Protime INR 0.94
[2019-12-14 19:59] LABS: ALT/SGPT 36 U/L (12-78); AST/SGOT 19 U/L (15-37); Albumin 3.7 g/dL (3.4-5.0); Alkaline Phosphatase 127 U/L (45-117); BUN Blood Urea Nitrogen 18 mg/dL (7-18); Bicarbonate 28 mmol/L (21-32); Bilirubin Direct 0.1 mg/dL (0-0.2); Bilirubin Total 0.4 mg/dL (0.2-1.0); Glucose Level 99 mg/dL (74-106); Magnesium 2.3 mg/dL (1.8-2.4); NT PRO-BNP 24 pg/mL (<125); Potassium 3.8 mmol/L (3.5-5.1); Protein, Total 8.2 g/dL (6.4-8.2); Sodium Level 143 mmol/L (136-145); Troponin (Emerg Dept Use Only) < 0.02 ng/mL (0.0-0.045)
--- NOTE | 2019-12-14 20:07 | RAD REPORT ---
EXAM DESCRIPTION: RAD - Chest Single View - 12/14/2019 7:50 pm CLINICAL HISTORY: CHEST PAIN COMPARISON: None TECHNIQUE: AP portable chest image was obtained 12/14/2019 7:50 pm . FINDINGS: Lungs are clear. Heart and vasculature are normal. No measurable pleural effusion and no p neumothorax. No acute bony abnormality seen. No acute aortic findings suspected. IMPRESSION: No acute cardiopulmonary process.
[2019-12-14 20:16] LABS: Urine Bacteria >50 /HPF (<20); Urine Culture Reflex Order REFLEXED; Urine Mucus 1+ /HPF (NONE SEEN); Urine RBC <5 /HPF (NONE SEEN)
[2019-12-14 20:16] LABS: Urine Blood NEGATIVE (NEG); Urine Glucose NEGATIVE (NEG); Urine Protein NEGATIVE (NEG); Urine Specific Gravity 1.025 (1.005-1.030)
[2019-12-14] MEDS ORDERED: CEFTRIAXONE/SWI 1gm 1 GM/10 ML SYR ONE (21:07)
--- NOTE | 2019-12-14 21:52 | EDPHYS ---
Physician Documentation [facility] Name: Becky Johnson Age: 49 yrs Sex: Female : 1970 Arrival Date: 12/14/2019 Time: 18:56 Bed 16 Private MD: Juan Chowdary S ED Physician Gregg Ambrocio HPI: 12/13 19:16 This 49 yrs old Female presents to ER via Ambulatory with complaints of Chest pm1 Pressure, Numbness Of Right Leg. 19:16 The patient or guardian reports chest pain that is located primarily in the mid-sternal pm1 area. Onset: this morning, at 06:30. The pain does not radiate. Associated signs and symptoms: Pertinent negatives: abdominal pain, cough, diaphoresis, dizziness, headache, nausea, palpitations, shortness of breath, vomiting, fever, diarrhea. The chest pain is described as Tightness. Duration: The patient or guardian reports a single episode, that is still ongoing. Modifying factors: The symptoms are alleviated by nothing. the symptoms are aggravated by nothing. Severity of pain: in the emergency department the pain is unchanged. The patient has not experienced similar symptoms in the past. Patient also reports right leg numbness and pain while she was sitting at work. Patient would stand up and walk around and the right leg numbness would resolve. Patient is not currently having any right leg numbness or pain. 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 - Social history:: Smoking status: Patient denies any tobacco usage or history of. Patient uses alcohol, but reports only rare drinking. ROS: 19:26 Constitutional: Negative for fever, chills, and weight loss, Neck: Negative for injury, pm1 pain, and swelling. 19:26 Respiratory: Negative for shortness of breath, cough, wheezing, and pleuritic chest pain, Abdomen/GI: Negative for abdominal pain, nausea, vomiting, diarrhea, and constipation, Back: Negative for injury and pain. 19:26 MS/Extremity: Negative for injury and deformity, Skin: Negative for injury, rash, and discoloration. 19:26 Cardiovascular: Positive for chest pain, Negative for edema, palpitations. 19:26 : Positive for burning with urination. 19:26 Neuro: Positive for numbness, and pain to right thigh. Exam: 19:26 Constitutional: This is a well developed, well nourished patient who is awake, alert, pm1 and in no acute distress. Head/Face: Normocephalic, atraumatic. Neck: Trachea midline, no thyromegaly or masses palpated, and no cervical lymphadenopathy. Supple, full range of motion without nuchal rigidity, or vertebral point tenderness. No Meningismus. Chest/axilla: Normal chest wall appearance and motion. Nontender with no deformity. No lesions are appreciated. 19:26 Abdomen/GI: Soft, non-tender, with normal bowel sounds. No distension or tympany. No guarding or rebound. No evidence of tenderness throughout. Back: No spinal tenderness. No costovertebral tenderness. Full range of motion. Skin: Warm, dry with normal turgor. Normal color with no rashes, no lesions, and no evidence of cellulitis. MS/ Extremity: Pulses equal, no cyanosis. Neurovascular intact. Full, normal range of motion. 19:26 Cardiovascular: Exam negative for acute changes, Rate: normal, Rhythm: regular, Pulses: no pulse deficits are appreciated, Edema: is not appreciated. 19:26 Respiratory: Exam negative for acute changes, respiratory distress, shortness of breath. 19:26 Neuro: Exam negative for acute changes, Orientation: is normal, Mentation: is normal, Motor: is normal, moves all fours. Vital Signs: 19:05 BP 148 / 89; Pulse 92; Resp 20 S; Temp 98.8(O); Pulse Ox 100% on R/A; Weight 81.65 kg bb (R); Height 5 ft. 0 in. (152.40 cm) (R); Pain 0/10; 21:11 BP 118 / 88; Pulse 87; Resp 18; Pulse Ox 100% on R/A; Pain 0/10; mg2 22:21 BP 120 / 78; Pulse 80; Resp 18; Temp 98; Pulse Ox 100% on R/A; Pain 0/10; mg2 19:05 Body Mass Index 35.15 (81.65 kg, 152.40 cm) bb MDM: 19:13 Patient medically screened. pm1 21:51 Data reviewed: vital signs. Data interpreted: Pulse oximetry: on room air is 100 %. pm1 Interpretation: normal. Counseling: I had a detailed discussion with the patient and/or guardian regarding: the historical points, exam findings, and any diagnostic results supporting the discharge/admit diagnosis, lab results, radiology results, the need for outpatient follow up, to return to the emergency department if symptoms worsen or persist or if there are any questions or concerns that arise at home. 12/13 19:14 Order name: Basic Metabolic Panel; Complete Time: 20:46 pm1 12/13 19:14 Order name: CBC with Diff; Complete Time: 20:46 pm1 12/13 19:14 Order name: LFT's; Complete Time: 20:46 pm1 12/13 19:14 Order name: Magnesium; Complete Time: 20:46 pm1 12/13 19:14 Order name: NT PRO-BNP; Complete Time: 20:46 pm1 12/13 19:14 Order name: PT-INR; Complete Time: 20:46 pm1 12/13 19:14 Order name: Troponin (emerg Dept Use Only); Complete Time: 20:46 pm1 12/13 19:14 Order name: XRAY Chest (1 view); Complete Time: 20:46 pm1 12/13 19:56 Order name: Urine Microscopic Only; Complete Time: 20:46 mg2 12/13 20:04 Order name: Urine Dipstick--Ancillary (enter results); Complete Time: 20:46 ar5 12/13 20:04 Order name: Urine --Ancillary (enter results); Complete Time: 20:46 ar5 12/13 20:17 Order name: Urine Culture EDMS 12/13 19:14 Order name: Cardiac monitoring; Complete Time: 19:22 pm1 12/13 19:14 Order name: EKG - Nurse/Tech; Complete Time: 19:22 pm1 12/13 19:14 Order name: IV Saline Lock; Complete Time: 19:22 pm1 12/13 19:14 Order name: Labs collected and sent; Complete Time: 19:23 pm1 12/13 19:14 Order name: O2 Per Protocol; Complete Time: 19:23 pm1 12/13 19:14 Order name: O2 Sat Monitoring; Complete Time: 19:23 pm1 12/13 19:14 Order name: Urine Dipstick-Ancillary (obtain specimen); Complete Time: 19:48 pm1 12/13 19:14 Order name: Urine Test (obtain specimen); Complete Time: 19:48 pm1 Administered Medications: 21:06 Drug: Rocephin 1 grams Route: IV; Rate: calculated rate; Site: left antecubital; mg2 21:57 Follow up: Response: No adverse reaction; IV Status: Completed infusion mg2 Disposition: 22:40 Co-signature as Attending Physician, Gregg Ambrocio MD. rn Disposition: 12/14/19 21:52 Discharged to Home. Impression: Chest pain, unspecified, Urinary tract infection, site not specified. - Condition is Stable. - Discharge Instructions: Nonspecific Chest Pain, Urinary Tract Infection, Adult. - Prescriptions for Bactrim DS 800- 160 mg Oral Tablet - take 1 tablet by ORAL route every 12 hours for 10 days; 20 tablet. - Medication Reconciliation Form, Thank You Letter, Antibiotic Education, Prescription Opioid Use form. - Follow up: Emergency Department; When: As needed; Reason: Worsening of condition. Follow up: Private Physician; When: 2 - 3 days; Reason: Recheck today's complaints, Continuance of care, Re-evaluation by your physician. - Problem is new. - Symptoms have improved. Signatures: Dispatcher [employer] Kate Jesus RN RN Gregg Watt MD MD rn Marinas, Patrick, WAREHOUSE SORTER WAREHOUSE SORTER pm1 Ellis Rachel RN RN mg2 Corrections: (The following items were deleted from the chart) 19:20 19:20 PSHx: None; caitlin tucker 22:23 21:52 12/14/2019 21:52 Discharged to Home. Impression: Chest pain, unspecifiedUrinary mg2 tract infection, site not specified. Condition is Stable. Forms are Medication Reconciliation Form, Thank You Letter, Antibiotic Education, Prescription Opioid Use. Follow up: Emergency Department; When: As needed; Reason: Worsening of condition. Follow up: Private Physician; When: 2 - 3 days; Reason: Recheck today's complaints, Continuance of care, Re-evaluation by your physician. Problem is new. Symptoms have improved. pm1
--- NOTE | 2019-12-14 21:52 | ER ---
Nurse's Notes [facility] Name: Becky Johnson Age: 49 yrs Sex: Female : 1970 Arrival Date: 12/14/2019 Time: 18:56 Bed 16 Private MD: Juan Chowdary S Diagnosis: Urinary tract infection, site not specified;Chest pain, unspecified Presentation: 12/13 19:05 Chief complaint: Patient states: she has been feeling a tightness, pressure to her bb chest all day, does not radiate, does not feel like "pain" she also has numbness to her left leg which goes away denies cough, fever. Coronavirus screen: Proceed with normal triage. Ebola Screen: No symptoms or risks identified at this time. Initial Sepsis Screen: Does the patient meet any 2 criteria? No. Patient's initial sepsis screen is negative. Does the patient have a suspected source of infection? No. Patient's initial sepsis screen is negative. Risk Assessment: Do you want to hurt yourself or someone else? Patient reports no desire to harm self or others. Onset of symptoms was December 14, 2019. 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 - Social history:: Smoking status: Patient denies any tobacco usage or history of. Patient uses alcohol, but reports only rare drinking. Screenin:24 Abuse screen: Denies threats or abuse. Denies injuries from another. Nutritional mg2 screening: No deficits noted. Tuberculosis screening: No symptoms or risk factors identified. Fall Risk IV access (20 points). Assessment: 19:23 General: Appears in no apparent distress. comfortable, Behavior is calm, cooperative. mg2 Pain: Complains of pain in chest Pain does not radiate. Pain began gradually. Neuro: Level of Consciousness is awake, alert, obeys commands, Oriented to person, place, time, situation. Cardiovascular: Capillary refill < 3 seconds Patient's skin is warm and dry. Respiratory: Airway is patent Respiratory effort is even, unlabored, Respiratory pattern is regular, symmetrical. GI: No signs and/or symptoms were reported involving the gastrointestinal system. : No signs and/or symptoms were reported regarding the genitourinary system. EENT: No signs and/or symptoms were reported regarding the EENT system. Derm: Skin is intact, is healthy with good turgor, Skin is pink, warm \\T\\ dry. normal. Musculoskeletal: Circulation, motion, and sensation intact. Capillary refill < 3 seconds, Reports numbness in left leg. 20:23 Reassessment: Patient appears in no apparent distress at this time. Patient and/or mg2 family updated on plan of care and expected duration. Pain level reassessed. Patient is alert, oriented x 3, equal unlabored respirations, skin warm/dry/pink. 21:30 Reassessment: Patient appears in no apparent distress at this time. Patient and/or mg2 family updated on plan of care and expected duration. Pain level reassessed. Patient is alert, oriented x 3, equal unlabored respirations, skin warm/dry/pink. Vital Signs: 19:05 BP 148 / 89; Pulse 92; Resp 20 S; Temp 98.8(O); Pulse Ox 100% on R/A; Weight 81.65 kg bb (R); Height 5 ft. 0 in. (152.40 cm) (R); Pain 0/10; 21:11 BP 118 / 88; Pulse 87; Resp 18; Pulse Ox 100% on R/A; Pain 0/10; mg2 22:21 BP 120 / 78; Pulse 80; Resp 18; Temp 98; Pulse Ox 100% on R/A; Pain 0/10; mg2 19:05 Body Mass Index 35.15 (81.65 kg, 152.40 cm) bb ED Course: 18:56 Patient arrived in ED. ag5 18:57 Juan Chowdary MD is Private Physician. ag5 19:03 [facility] Stein [facility]. pm1 19:03 Gregg Ambrocio MD is Attending Physician. pm1 19:18 Ellis Rachel, ERIN is Primary Nurse. mg2 19:19 Triage completed. bb 19:20 Arm band placed on Patient placed in an exam room, on a stretcher, on set up machinist, bb on pulse oximetry. EKG completed in triage. Results shown to MD. 19:25 Patient has correct armband on for positive identification. Placed in gown. Bed in low mg2 position. Call light in reach. Side rails up X 1. meter/relay craftsman on. Pulse ox on. NIBP on. Door closed. Warm blanket given. 19:25 No provider procedures requiring assistance completed. Patient maintains SpO2 mg2 saturation greater than 95% on room air. 19:27 EKG done, by ED staff, reviewed by Gregg Ambrocio MD. ds4 19:30 Initial lab(s) drawn, by ut, sent to lab. Inserted saline lock: 20 gauge in left jp3 antecubital area, using aseptic technique. Blood collected. 19:40 Urine collected: clean catch specimen, clear, ghislaine colored, X-ray(s) taken. jp3 19:48 XRAY Chest (1 view) Sent. jp3 19:51 XRAY Chest (1 view) In Process Unspecified. EDMS 22:22 IV discontinued, intact, bleeding controlled, No redness/swelling at site. Pressure mg2 dressing applied. Administered Medications: 21:06 Drug: Rocephin 1 grams Route: IV; Rate: calculated rate; Site: left antecubital; mg2 21:57 Follow up: Response: No adverse reaction; IV Status: Completed infusion mg2 Outcome: 21:52 Discharge ordered by MD. pm1 22:23 Discharged to home ambulatory. mg2 22:23 Condition: stable 22:23 Discharge instructions given to patient, Instructed on discharge instructions, follow up and referral plans. medication usage, Demonstrated understanding of instructions, follow-up care, medications, Prescriptions given X 1. 22:23 Patient left the ED. mg2 Signatures: Dispatcher [employer] EDMS Kate Brush RN RN Og Martin ds4 Rojelio Stein NP TEMPLATE REPRODUCTION TECHNICIAN pm1 Ellis Rachel RN RN mg2 Ezra Herr jp3 Sina Castro ag5 Corrections: (The following items were deleted from the chart) 19:20 19:20 PSHx: None; caitlin tucker
[2019-12-14 22:41] VITALS: O2SAT 100
[2019-12-14 22:44] VITALS: BP 120/78; TEMP 98
--- NOTE | 2019-12-15 11:31 | EKG ---
Test Date: 2019-12-14 Test Time: 19:15:59 Member Services Coordinator: ELIZABETH MEASUREMENT RESULTS: Intervals: Rate: 83 WI: 154 QRSD: 84 QT: 382 QTc: 448 [place]: P: 59 WI: 154 QRS: -24 T: 25 INTERPRETIVE STATEMENTS: Normal sinus rhythm Normal ECG No previous ECG available for comparison Electronically Signed On 12-15-19 11:29:53 CDT by Josep Pettit
== END 2019-12-14 22:23 | disposition home or self-care (01) ==
LOC: ER 18:54
DX: N39.0 Urinary tract infection, site not specified (principal)
CPT/HCPCS: 93005; 87088; 85025; 87086; 80048; 36415; 83735; 81025; 85610; 80076; 84484; 83880; 71045; J0696; 81003; 81015; 87077; 87186; 96365; 99285